=== PATIENT | female | born 1970 | race American Indian/Alaskan Native ===

== ENCOUNTER 2020-07-02 14:43 | Outpatient (CLI) | payer OTHER ==
--- NOTE | 2020-07-02 16:13 | XRay Report ---
CHEST 2 VIEWS INDICATION: PLUMONARY FUNCTION. COMPARISON: None FINDINGS: Support devices: None. Heart: Within normal limits. Lungs: No acute air space or interstitial disease. Pleura: No significant pleural effusion. No pneumothorax. Additional findings: None. IMPRESSION: 1. No acute findings. Signer Name: Michael Leon MD Signed: 07/02/2020 4:08 PM Workstation Name: [id number]
== END 2020-07-02 14:44 | disposition home or self-care (01) ==
LOC: PF 14:43
PROVIDERS: ATTEND Internal Medicine
DX: J45.909 Unspecified asthma, uncomplicated (principal); K21.9 Gastro-esophageal reflux disease without esophagitis; D86.9 Sarcoidosis, unspecified; Z57.5 Occupational exposure to toxic agents in other industries
CPT/HCPCS: 71046; 94010; 94726; 94729